=== PATIENT | female | born 1945 | race Caucasian/White ===

== ENCOUNTER → 2019-09-04 | Outpatient (CLI) | payer MEDICARE, BC ==
--- NOTE | 2019-09-04 14:24 | RADIOLOGY REPORT (SQ) ---
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 TECHNIQUE: Multiplanar imaging includes noncontrasted T1, T2, FLAIR, diffusion with ADC map and post gadolinium contrast T1 sequences. Additional thin section axial and coronal T2 weighted images, axial and coronal pre and postcontrast T1 weighted images through the orbits. Images stored on PACS. CONTRAST TYPE AND DOSE: 10 mL Dotarem. RENAL FUNCTION: Not indicated. ACR Type II contrast agent associated with few, if any, unconfounded cases of NSF LIMITATIONS: None. FINDINGS: ANATOMY: Abnormal signal in the left internal carotid artery at the skullbase worrisome fo r very slow flow and significant proximal carotid bifurcation disease. This is best demonstrated on thin section axial imaging through the orbits series 13, 14, and 18. CSF SPACES: There are multiple extra-axial masses scattered throughout the cerebral convexities. The largest of these is in the left posterior temporal/ occipital region measuring about 4 x 3.3 x 3.7 c m in size, with moderate surrounding vasogenic edema and mild local mass effect. 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 No superimposed acute he morrhage. CEREBRUM: Multiple extra-axial masses worrisome for pial surface metastatic disease. No MR evidence of acute large territory ischemic change, acute intracranial hemorrhage, or midline sh ift. There is chronic appearing small vessel ischemic change with spotty increased FLAIR/T2 signal in the mid barbara and hemispheric white matter. POSTERIOR FOSSA: 1 cm mass in the right cerebellar peduncle with peripheral rim enhancement worrisome for metastatic lesion. Moderate chronic small vessel ischemic change in the mid barbara. DIFFUSION IMAGING: Negative for acute or subacute infarction. ORBITS: No masses. Globes and optic nerves are normal. PARANASAL SINUSES: No fluid levels. Mucosa normal. OTHER: No other significant finding. 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 TECHNICAL DOCUMENTATION: JOB ID: [id number] 2010 [employer]- All Rights Reserved Reading location - IP/workstation name: [email or web address]
== END ==
LOC: RAD 11:39
PROVIDERS: ATTEND Physician Assistant
DX: C79.31 Secondary malignant neoplasm of brain (principal); H53.9 Unspecified visual disturbance; C80.1 Malignant (primary) neoplasm, unspecified
CPT/HCPCS: 82565; 70553; A9576